=== PATIENT | male | born 1945 | race Caucasian/White ===

== ENCOUNTER 2019-08-18 08:27 | Day surgery (SDC) | payer MEDICARE, OTHER ==
[~2019-08-18 08:27] MED LIST: FLO0.4C PO; HYT1T PO; INHALER INH
[2019-08-18 08:40] VITALS: BP 145/76
[2019-08-18] MEDS ORDERED: AMIT50TA3 PO (09:11)
[2019-08-18] MEDS ORDERED: TRAM50TA2 PO (09:11)
[2019-08-18 10:20] VITALS: BP 150/72
[2019-08-18 10:35] VITALS: BP 149/74
[2019-08-18 10:50] VITALS: BP 146/74
[2019-08-18 11:05] VITALS: BP 141/74
[2019-08-18] MEDS ORDERED: normal saline 1000ml 1,000 ML IV SCH (12:05)
[2019-08-18] MEDS ORDERED: albumin (human) 25% 100ml IV 100 ML IV ONE (12:05)
== END 2019-08-18 13:35 | disposition home or self-care (01) ==
LOC: SSTAY O 08:27
PROVIDERS: ATTEND Radiology Vascular & Interventional Radiology
DX: R18.8 Other ascites (principal); C18.9 Malignant neoplasm of colon, unspecified; J44.9 Chronic obstructive pulmonary disease, unspecified; Z79.899 Other long term (current) drug therapy; Z98.890 Other specified postprocedural states
CPT/HCPCS: 49083; C1729; J7030; P9047

== ENCOUNTER 2019-08-30 06:16 | Day surgery (SDC) | payer MEDICARE, OTHER ==
[~2019-08-30] VITALS: Ht 177.8 cm; Wt 92.8 kg
[2019-08-30] VITALS (7 sets, daily range): BP systolic 128–152; BP diastolic 56–88
[~2019-08-30 06:16] MED LIST changes: +AMIT50TA3 PO; -FLO0.4C PO; -HYT1T PO; -INHALER INH; +TRAM50TA2 PO
[2019-08-30] MEDS ORDERED: LIDOcaine 1% (10mg/ml) 2ml vial ONE (06:36)
[2019-08-30] MEDS ORDERED: AMIT-189 PO (06:37)
[2019-08-30] MEDS ORDERED: albumin 25% 100mL bottle x 1 IV PRN (06:40)
[2019-08-30] MEDS ORDERED: normal saline 1000ml 1,000 ML IV PRN (06:40)
== END 2019-08-30 09:35 | disposition home or self-care (01) ==
LOC: SSTAY O 06:16
PROVIDERS: ATTEND Radiology Diagnostic Radiology
DX: R18.8 Other ascites (principal); J44.9 Chronic obstructive pulmonary disease, unspecified; C18.9 Malignant neoplasm of colon, unspecified; C78.5 Secondary malignant neoplasm of large intestine and rectum; Z98.890 Other specified postprocedural states; Z92.21 Personal history of antineoplastic chemotherapy; Z79.899 Other long term (current) drug therapy
CPT/HCPCS: 49083; C1729; J2001; P9047

== ENCOUNTER 2019-09-07 07:10 | Day surgery (SDC) | payer MEDICARE, OTHER ==
[~2019-09-07] VITALS: Ht 177.8 cm; Wt 95.5 kg
[~2019-09-07 07:10] MED LIST changes: +AMIT-189 PO; -AMIT50TA3 PO
[2019-09-07] MEDS ORDERED: normal saline 1000ml 1,000 ML IV SCH (07:30)
[2019-09-07] MEDS ORDERED: albumin 25% 100mL bottle x 1 IV PRN (07:50)
[2019-09-07] MEDS ORDERED: DIPH-522 PO (08:06)
[2019-09-07] MEDS ORDERED: FOLI0.4T14 CORPAK (08:06)
[2019-09-07] MEDS ORDERED: ONDA8TAB12 PO (08:06)
[2019-09-07] MEDS ORDERED: OMEP40CA13 PO (08:06)
[2019-09-07 08:12] VITALS: BP 148/77
[2019-09-07 08:25] VITALS: BP 158/90
[2019-09-07 08:40] VITALS: BP 152/90
[2019-09-07 08:55] VITALS: BP 164/92
[2019-09-07] MEDS ORDERED: LIDOcaine 1% (10mg/ml) 2ml vial ONE (09:01)
[2019-09-07 09:10] VITALS: BP 168/88
[2019-09-07 09:30] VITALS: BP 149/81
== END 2019-09-07 09:45 | disposition home or self-care (01) ==
LOC: SSTAY O 07:10
PROVIDERS: ATTEND Radiology Vascular & Interventional Radiology
DX: R18.8 Other ascites (principal)
CPT/HCPCS: 49083; C1729; J2001; J7030; P9047

== ENCOUNTER 2019-09-15 06:13 | Day surgery (SDC) | payer MEDICARE, OTHER ==
[2019-09-15] VITALS (7 sets, daily range): BP systolic 132–165; BP diastolic 81–96
[~2019-09-15] VITALS: Ht 180.3 cm; Wt 91.8 kg
[~2019-09-15 06:13] MED LIST changes: +DIPH-522 PO; +FOLI0.4T14 CORPAK; +OMEP40CA13 PO; +ONDA8TAB12 PO
[2019-09-15] MEDS ORDERED: normal saline 1000ml 1,000 ML IV PRN (06:30)
[2019-09-15] MEDS ORDERED: albumin 25% 100mL bottle x 1 IV PRN (06:30)
== END 2019-09-15 09:50 | disposition home or self-care (01) ==
LOC: SSTAY O 06:13
PROVIDERS: ATTEND Radiology Vascular & Interventional Radiology
DX: R18.0 Malignant ascites (principal); C18.9 Malignant neoplasm of colon, unspecified; Z98.890 Other specified postprocedural states; Z79.899 Other long term (current) drug therapy
CPT/HCPCS: 49083; C1729; J7030; P9047

== ENCOUNTER 2019-09-22 06:14 | Day surgery (SDC) | payer MEDICARE, OTHER ==
[~2019-09-22] VITALS: Ht 180.3 cm; Wt 89.5 kg
[2019-09-22] VITALS (7 sets, daily range): BP systolic 141–152; BP diastolic 77–85
[2019-09-22] MEDS ORDERED: albumin 25% 100mL bottle x 1 IV PRN (06:35)
[2019-09-22] MEDS ORDERED: normal saline 1000ml 1,000 ML IV PRN (06:35)
== END 2019-09-22 09:55 | disposition home or self-care (01) ==
LOC: SSTAY O 06:14
PROVIDERS: ATTEND Radiology Vascular & Interventional Radiology
DX: R18.8 Other ascites (principal); J44.9 Chronic obstructive pulmonary disease, unspecified; Z85.038 Personal history of other malignant neoplasm of large intestine; Z98.890 Other specified postprocedural states; Z79.899 Other long term (current) drug therapy
CPT/HCPCS: 49083; C1729; J7030; P9047

== ENCOUNTER 2019-09-29 08:04 | Day surgery (SDC) | payer MEDICARE, OTHER ==
[2019-09-29] VITALS (7 sets, daily range): BP systolic 130–147; BP diastolic 62–94
[~2019-09-29] VITALS: Ht 177.8 cm; Wt 87.7 kg
[2019-09-29] MEDS ORDERED: normal saline 1000ml 1,000 ML IV PRN (08:20)
[2019-09-29] MEDS ORDERED: albumin 25% 100mL bottle x 1 IV PRN (09:15)
== END 2019-09-29 10:16 | disposition home or self-care (01) ==
LOC: SSTAY O 08:04
PROVIDERS: ATTEND Radiology Diagnostic Radiology
DX: R18.8 Other ascites (principal); Z79.899 Other long term (current) drug therapy; Z85.038 Personal history of other malignant neoplasm of large intestine; Z80.0 Family history of malignant neoplasm of digestive organs
CPT/HCPCS: 49083; C1729; J7030; P9047

== ENCOUNTER 2019-10-13 06:58 | Day surgery (SDC) | payer MEDICARE, OTHER ==
[~2019-10-13] VITALS: Ht 177.8 cm; Wt 85.7 kg
[~2019-10-13 06:58] MED LIST changes: -ONDA8TAB12 PO; +ONDA8TAB65 PO
[2019-10-13 07:15] VITALS: BP 129/71
[2019-10-13] MEDS ORDERED: normal saline 1000ml 1,000 ML IV PRN (07:30)
[2019-10-13] MEDS ORDERED: albumin 25% 100mL bottle x 1 IV PRN (07:30)
[2019-10-13 09:38] VITALS: BP 127/65
[2019-10-13 09:45] VITALS: BP 127/69
[2019-10-13 10:00] VITALS: BP 126/68
[2019-10-13 10:13] VITALS: BP 130/65
== END 2019-10-13 10:16 | disposition home or self-care (01) ==
LOC: SSTAY O 06:58
PROVIDERS: ATTEND Radiology Diagnostic Radiology
DX: R18.8 Other ascites (principal); J44.9 Chronic obstructive pulmonary disease, unspecified; Z85.038 Personal history of other malignant neoplasm of large intestine; Z79.899 Other long term (current) drug therapy
CPT/HCPCS: 49083; C1729; J7030

== ENCOUNTER 2019-10-31 07:51 | Day surgery (SDC) | payer MEDICARE, OTHER ==
[2019-10-31] VITALS (8 sets, daily range): BP systolic 131–153; BP diastolic 68–84
[~2019-10-31] VITALS: Ht 180.3 cm; Wt 88.4 kg
[2019-10-31] MEDS ORDERED: albumin 25% 100mL bottle x 1 IV PRN (08:05)
[2019-10-31] MEDS ORDERED: [UNRECOGNIZED DRUG - CODE] IV (08:25)
[2019-10-31] MEDS ORDERED: FLUO1VIA8 IV (08:25)
[2019-10-31] MEDS ORDERED: LIDOcaine 1% (10mg/ml) 2ml vial SQ ONE (09:10)
== END 2019-10-31 10:30 | disposition home or self-care (01) ==
LOC: SSTAY O 07:51
PROVIDERS: ATTEND Radiology Vascular & Interventional Radiology
DX: R18.8 Other ascites (principal); J44.9 Chronic obstructive pulmonary disease, unspecified; G47.33 Obstructive sleep apnea (adult) (pediatric); F41.8 Other specified anxiety disorders; Z85.46 Personal history of malignant neoplasm of prostate; Z98.890 Other specified postprocedural states; Z79.899 Other long term (current) drug therapy
CPT/HCPCS: 49083; C1729; J2001; P9047

== ENCOUNTER 2019-11-13 06:46 | Day surgery (SDC) | payer MEDICARE, OTHER ==
[~2019-11-13] VITALS: Ht 180.3 cm; Wt 89.5 kg
[~2019-11-13 06:46] MED LIST changes: +FLUO1VIA8 IV; -ONDA8TAB65 PO; +[UNRECOGNIZED DRUG - CODE] IV
[2019-11-13 07:06] VITALS: BP 157/92
[2019-11-13] MEDS ORDERED: normal saline 1000ml 1,000 ML IV PRN (07:10)
[2019-11-13] MEDS ORDERED: albumin 25% 100mL bottle x 1 IV PRN (07:10)
[2019-11-13] MEDS ORDERED: [UNRECOGNIZED DRUG - OTHER] (07:11)
[2019-11-13 08:31] VITALS: BP 144/72
[2019-11-13 08:45] VITALS: BP 133/73
[2019-11-13 09:00] VITALS: BP 137/63
[2019-11-13] MEDS ORDERED: LIDOcaine 1% (10mg/ml) 2ml vial ONE (09:03)
[2019-11-13 09:15] VITALS: BP 140/72
[2019-11-13 10:01] VITALS: BP 141/71
== END 2019-11-13 10:10 | disposition home or self-care (01) ==
LOC: SSTAY O 06:46
PROVIDERS: ATTEND Radiology Vascular & Interventional Radiology
DX: R18.8 Other ascites (principal); J44.9 Chronic obstructive pulmonary disease, unspecified; G47.30 Sleep apnea, unspecified; E80.4 Gilbert syndrome; F32.9 Major depressive disorder, single episode, unspecified; F41.9 Anxiety disorder, unspecified; Z85.46 Personal history of malignant neoplasm of prostate; Z85.038 Personal history of other malignant neoplasm of large intestine; Z98.890 Other specified postprocedural states; Z79.899 Other long term (current) drug therapy
CPT/HCPCS: 49083; C1729; J2001; P9047

== ENCOUNTER 2019-11-27 07:02 | Day surgery (SDC) | payer MEDICARE, OTHER ==
[~2019-11-27] VITALS: Ht 185.4 cm; Wt 89.8 kg
[~2019-11-27 07:02] MED LIST changes: -FLUO1VIA8 IV; -FOLI0.4T14 CORPAK; +FOLI0.4T14 PO; -[UNRECOGNIZED DRUG - CODE] IV; +[UNRECOGNIZED DRUG - OTHER]
[2019-11-27 07:15] VITALS: BP 149/89
[2019-11-27] MEDS ORDERED: normal saline 1000ml 1,000 ML IV PRN (07:20)
[2019-11-27] MEDS ORDERED: albumin 25% 100mL bottle x 1 IV PRN (07:20)
[2019-11-27] MEDS ORDERED: ESCI10TA PO (07:23)
[2019-11-27 09:25] VITALS: BP 141/86
[2019-11-27 09:30] VITALS: BP 143/76
[2019-11-27 09:45] VITALS: BP 144/79
[2019-11-27 10:15] VITALS: BP 144/81
[2019-11-27 10:30] VITALS: BP 141/75
== END 2019-11-27 10:50 | disposition home or self-care (01) ==
LOC: SSTAY O 07:02
PROVIDERS: ATTEND Radiology Vascular & Interventional Radiology
DX: R18.8 Other ascites (principal); J44.9 Chronic obstructive pulmonary disease, unspecified; G47.30 Sleep apnea, unspecified; F32.9 Major depressive disorder, single episode, unspecified; F41.9 Anxiety disorder, unspecified; D56.3 Thalassemia minor; E80.4 Gilbert syndrome; Z85.46 Personal history of malignant neoplasm of prostate; Z85.038 Personal history of other malignant neoplasm of large intestine; Z79.899 Other long term (current) drug therapy; Z98.890 Other specified postprocedural states
CPT/HCPCS: 49083; C1729; J2001; P9047

== ENCOUNTER 2019-12-11 07:20 | Day surgery (SDC) | payer MEDICARE, OTHER ==
[2019-12-11] VITALS (8 sets, daily range): BP systolic 108–145; BP diastolic 57–92
[~2019-12-11] VITALS: Ht 180.3 cm; Wt 73.9 kg
[~2019-12-11 07:20] MED LIST changes: +ESCI10TA PO; -[UNRECOGNIZED DRUG - OTHER]
[2019-12-11] MEDS ORDERED: FLUO1VIA8 (07:53)
[2019-12-11] MEDS ORDERED: albumin 25% 100mL bottle x 1 IV PRN (07:55)
== END 2019-12-11 11:15 | disposition home or self-care (01) ==
LOC: SSTAY O 07:20
PROVIDERS: ATTEND Radiology Diagnostic Radiology
DX: R18.8 Other ascites (principal); J44.9 Chronic obstructive pulmonary disease, unspecified; G47.30 Sleep apnea, unspecified; F32.9 Major depressive disorder, single episode, unspecified; F41.9 Anxiety disorder, unspecified; C18.9 Malignant neoplasm of colon, unspecified; Z98.890 Other specified postprocedural states; Z85.46 Personal history of malignant neoplasm of prostate; Z79.899 Other long term (current) drug therapy
CPT/HCPCS: 49083; C1729; P9047

== ENCOUNTER 2019-12-29 08:25 | Day surgery (SDC) | payer MEDICARE, OTHER ==
[~2019-12-29] VITALS: Ht 180.3 cm; Wt 89.1 kg
[~2019-12-29 08:25] MED LIST changes: -DIPH-522 PO; -ESCI10TA PO; +FLUO1VIA8; -TRAM50TA2 PO
[2019-12-29] MEDS ORDERED: albumin 25% 100mL bottle x 1 IV PRN (08:50)
[2019-12-29] MEDS ORDERED: normal saline 1000ml 1,000 ML IV PRN (08:50)
[2019-12-29 08:54] VITALS: BP 144/61
--- NOTE | 2019-12-29 16:13 | NUR ---
scheduled vitals on monitor accidentally erased-staff transitioning to new unit and getting familiarized with new equipment and processes-VS remained stable throughout procedure and recovery
== END 2019-12-29 11:00 | disposition home or self-care (01) ==
LOC: MED 3N 08:25 → SSTAY O 08:25
PROVIDERS: ATTEND Radiology Vascular & Interventional Radiology
DX: R18.8 Other ascites (principal); C18.9 Malignant neoplasm of colon, unspecified; J44.9 Chronic obstructive pulmonary disease, unspecified; G47.30 Sleep apnea, unspecified; E80.4 Gilbert syndrome; D56.3 Thalassemia minor; F32.9 Major depressive disorder, single episode, unspecified; F41.9 Anxiety disorder, unspecified; Z85.46 Personal history of malignant neoplasm of prostate; Z98.890 Other specified postprocedural states; Z79.899 Other long term (current) drug therapy
CPT/HCPCS: 49083; C1729; P9047; GO378

== ENCOUNTER 2020-01-12 07:47 | Day surgery (SDC) | payer MEDICARE, OTHER ==
[~2020-01-12] VITALS: Ht 180.3 cm; Wt 88.4 kg
[2020-01-12] MEDS ORDERED: albumin 25% 100mL bottle x 1 IV PRN (08:10)
[2020-01-12 08:15] VITALS: BP 138/64
[2020-01-12] MEDS ORDERED: TRAM50TA2 PO (08:23)
[2020-01-12] MEDS ORDERED: DIPH-186 PO (08:23)
[2020-01-12 09:15] VITALS: BP 145/72
[2020-01-12] MEDS ORDERED: LIDOcaine 1% (10mg/ml) 2ml vial ONE (09:55)
== END 2020-01-12 11:10 | disposition home or self-care (01) ==
LOC: SSTAY O 07:47 → MED 3N 07:49 → SSTAY O 11:10
PROVIDERS: ATTEND Radiology Diagnostic Radiology
DX: R18.8 Other ascites (principal); C18.9 Malignant neoplasm of colon, unspecified; J44.9 Chronic obstructive pulmonary disease, unspecified; G47.33 Obstructive sleep apnea (adult) (pediatric); D56.3 Thalassemia minor; F32.9 Major depressive disorder, single episode, unspecified; F41.9 Anxiety disorder, unspecified; E80.4 Gilbert syndrome; Z85.46 Personal history of malignant neoplasm of prostate; Z85.828 Personal history of other malignant neoplasm of skin; Z98.890 Other specified postprocedural states; Z79.899 Other long term (current) drug therapy
CPT/HCPCS: 49083; C1729; J2001; P9047

== ENCOUNTER 2020-01-26 07:02 | Day surgery (SDC) | payer MEDICARE, OTHER ==
[2020-01-26] VITALS (9 sets, daily range): BP systolic 121–144; BP diastolic 62–95
[~2020-01-26] VITALS: Ht 180.3 cm; Wt 86.2 kg
[~2020-01-26 07:02] MED LIST changes: +DIPH-186 PO; +TRAM50TA2 PO
[2020-01-26] MEDS ORDERED: normal saline 1000ml 1,000 ML IV PRN (07:25)
[2020-01-26] MEDS ORDERED: albumin 25% 100mL bottle x 1 IV PRN (07:25)
[2020-01-26] MEDS ORDERED: BENZ-38 PO (08:22)
[2020-01-26] MEDS ORDERED: ESCI-10 PO (08:22)
[2020-01-26] MEDS ORDERED: [UNRECOGNIZED DRUG - CODE] IV (08:24)
[2020-01-26] MEDS ORDERED: FOLI0.4T14 PO (08:25)
[2020-01-26] MEDS ORDERED: ONDA8TAB65 PO (08:26)
[2020-01-26] MEDS ORDERED: LIDOcaine 1% (10mg/ml) 2ml vial ONE (08:57)
== END 2020-01-26 10:00 | disposition home or self-care (01) ==
LOC: U 07:02 → MED 3N 07:02 → U 10:00
PROVIDERS: ATTEND Radiology Vascular & Interventional Radiology
DX: R18.8 Other ascites (principal); G47.30 Sleep apnea, unspecified; F32.9 Major depressive disorder, single episode, unspecified; C18.9 Malignant neoplasm of colon, unspecified; F41.9 Anxiety disorder, unspecified; Z98.890 Other specified postprocedural states; Z79.899 Other long term (current) drug therapy; Z85.46 Personal history of malignant neoplasm of prostate
CPT/HCPCS: 49083; C1729; J2001; P9047

== ENCOUNTER 2020-02-09 07:17 | Day surgery (SDC) | payer MEDICARE, OTHER ==
[~2020-02-09] VITALS: Ht 180.3 cm; Wt 85.5 kg
[~2020-02-09 07:17] MED LIST changes: +BENZ-38 PO; +ESCI-10 PO; -FLUO1VIA8; +ONDA8TAB65 PO; +[UNRECOGNIZED DRUG - CODE] IV
[2020-02-09 07:30] VITALS: BP 131/78
[2020-02-09] MEDS ORDERED: albumin 25% 100mL bottle x 1 IV PRN (07:35)
[2020-02-09] MEDS ORDERED: normal saline 1000ml 1,000 ML IV PRN (07:35)
[2020-02-09 08:20] VITALS: BP 122/68
[2020-02-09 08:35] VITALS: BP 134/66
[2020-02-09] MEDS ORDERED: LIDOcaine 1% (10mg/ml) 2ml vial SQ ONE (08:40)
[2020-02-09 08:50] VITALS: BP 122/76
[2020-02-09 09:05] VITALS: BP 122/65
[2020-02-09 09:20] VITALS: BP 123/72
== END 2020-02-09 09:30 | disposition home or self-care (01) ==
LOC: SSTAY O 07:17
PROVIDERS: ATTEND Radiology Diagnostic Radiology
DX: R18.8 Other ascites (principal); C18.9 Malignant neoplasm of colon, unspecified; J44.9 Chronic obstructive pulmonary disease, unspecified; G47.30 Sleep apnea, unspecified; E80.4 Gilbert syndrome; D56.3 Thalassemia minor; F41.9 Anxiety disorder, unspecified; F32.9 Major depressive disorder, single episode, unspecified; Z85.46 Personal history of malignant neoplasm of prostate; Z98.890 Other specified postprocedural states; Z79.899 Other long term (current) drug therapy
CPT/HCPCS: 49083; C1729; J2001; P9047

== ENCOUNTER 2020-02-23 07:01 | Day surgery (SDC) | payer MEDICARE, OTHER ==
[~2020-02-23] VITALS: Ht 180.3 cm; Wt 89.2 kg
[~2020-02-23 07:01] MED LIST changes: -BENZ-38 PO; -ESCI-10 PO; -FOLI0.4T14 PO; -ONDA8TAB65 PO
[2020-02-23] MEDS ORDERED: albumin 25% 100mL bottle x 1 IV PRN (07:30)
[2020-02-23 07:31] VITALS: BP 152/74
[2020-02-23 08:27] VITALS: BP 132/66
[2020-02-23 08:30] VITALS: BP 132/66
[2020-02-23] MEDS ORDERED: LIDOcaine 1% (10mg/ml) 2ml vial ONE (08:42)
[2020-02-23 08:45] VITALS: BP 131/66
[2020-02-23] MEDS ORDERED: ondansetron/PF 4mg/2ml inj IV ONE (09:15)
[2020-02-23] MEDS ORDERED: ondansetron/PF 4mg/2ml inj IM ONE (09:15)
[2020-02-23 09:30] VITALS: BP 136/68
== END 2020-02-23 09:45 | disposition home or self-care (01) ==
LOC: SSTAY O 07:01
PROVIDERS: ATTEND Radiology Diagnostic Radiology
DX: R18.8 Other ascites (principal); J44.9 Chronic obstructive pulmonary disease, unspecified; G47.30 Sleep apnea, unspecified; E80.4 Gilbert syndrome; D56.3 Thalassemia minor; F32.9 Major depressive disorder, single episode, unspecified; F41.9 Anxiety disorder, unspecified; Z85.46 Personal history of malignant neoplasm of prostate; Z85.038 Personal history of other malignant neoplasm of large intestine; K58.9 Irritable bowel syndrome, unspecified; Z98.890 Other specified postprocedural states; Z79.899 Other long term (current) drug therapy
CPT/HCPCS: 49083; J2001; J2405; P9047

== ENCOUNTER 2020-03-08 07:56 | Day surgery (SDC) | payer MEDICARE, OTHER ==
[2020-03-08] VITALS (7 sets, daily range): BP systolic 115–125; BP diastolic 51–74
[~2020-03-08] VITALS: Ht 180.3 cm; Wt 86.9 kg
[2020-03-08] MEDS ORDERED: normal saline 1000ml 1,000 ML IV PRN (08:15)
[2020-03-08] MEDS ORDERED: albumin 25% 100mL bottle x 1 IV PRN (08:15)
[2020-03-08] MEDS ORDERED: LIDOcaine 1% (10mg/ml) 2ml vial ONE (08:16)
[2020-03-08] MEDS ORDERED: ondansetron/PF 4mg/2ml inj IV ONE (09:50)
== END 2020-03-08 11:08 | disposition home or self-care (01) ==
LOC: SSTAY O 07:56
PROVIDERS: ATTEND Radiology Diagnostic Radiology
DX: R18.8 Other ascites (principal); J44.9 Chronic obstructive pulmonary disease, unspecified; G47.30 Sleep apnea, unspecified; F32.9 Major depressive disorder, single episode, unspecified; F41.9 Anxiety disorder, unspecified; Z98.890 Other specified postprocedural states; Z79.899 Other long term (current) drug therapy
CPT/HCPCS: 49083; C1729; J2001; J2405; P9047

== ENCOUNTER 2020-03-22 06:58 | Day surgery (SDC) | payer MEDICARE, OTHER ==
[2020-03-22] VITALS (8 sets, daily range): BP systolic 125–145; BP diastolic 64–80
[~2020-03-22] VITALS: Ht 180.3 cm; Wt 88.1 kg
[2020-03-22] MEDS ORDERED: albumin 25% 100mL bottle x 1 IV PRN (07:20)
[2020-03-22] MEDS ORDERED: normal saline 1000ml 1,000 ML IV PRN (07:20)
[2020-03-22] MEDS ORDERED: LIDOcaine 1% (10mg/ml) 2ml vial ONE (07:25)
--- NOTE | 2020-03-22 10:05 | NUR ---
Called EDUARD Salazar for Zofran order, pt complaining of nausea. Order received.
[2020-03-22] MEDS ORDERED: ondansetron/PF 4mg/2ml inj IV ONE (10:10)
== END 2020-03-22 10:30 | disposition home or self-care (01) ==
LOC: SSTAY O 06:58
PROVIDERS: ATTEND Radiology Vascular & Interventional Radiology
DX: R18.8 Other ascites (principal); C18.9 Malignant neoplasm of colon, unspecified; J44.9 Chronic obstructive pulmonary disease, unspecified; K58.9 Irritable bowel syndrome, unspecified; G47.30 Sleep apnea, unspecified; E80.4 Gilbert syndrome; D56.3 Thalassemia minor; F32.9 Major depressive disorder, single episode, unspecified; F41.9 Anxiety disorder, unspecified; Z85.46 Personal history of malignant neoplasm of prostate; Z98.890 Other specified postprocedural states; Z79.899 Other long term (current) drug therapy
CPT/HCPCS: 49083; J2001; J2405; P9047

== ENCOUNTER 2020-03-29 07:21 | Day surgery (SDC) | payer MEDICARE, OTHER ==
[2020-03-29] VITALS (10 sets, daily range): BP systolic 105–127; BP diastolic 57–80
[~2020-03-29] VITALS: Ht 177.8 cm; Wt 84.8 kg
[~2020-03-29 07:21] MED LIST changes: -OMEP40CA13 PO
[2020-03-29] MEDS ORDERED: albumin 25% 100mL bottle x 1 IV PRN (07:50)
[2020-03-29] MEDS ORDERED: normal saline 1000ml 1,000 ML IV PRN (07:50)
[2020-03-29] MEDS ORDERED: THC GUMMIES PO (08:18)
[2020-03-29] MEDS ORDERED: ondansetron/PF 4mg/2ml inj IV ONE (10:05)
[2020-03-29] MEDS ORDERED: ondansetron/PF 4mg/2ml inj ONE (10:06)
== END 2020-03-29 10:52 | disposition home or self-care (01) ==
LOC: SSTAY O 07:21
PROVIDERS: ATTEND Radiology Diagnostic Radiology
DX: R18.8 Other ascites (principal); K58.9 Irritable bowel syndrome, unspecified; G47.30 Sleep apnea, unspecified; E80.4 Gilbert syndrome; F32.9 Major depressive disorder, single episode, unspecified; F41.9 Anxiety disorder, unspecified; D56.3 Thalassemia minor; Z85.46 Personal history of malignant neoplasm of prostate; Z98.890 Other specified postprocedural states; Z79.899 Other long term (current) drug therapy
CPT/HCPCS: 49083; J2405; P9047

== ENCOUNTER 2020-04-12 07:11 | Day surgery (SDC) | payer MEDICARE, OTHER ==
[~2020-04-12] VITALS: Ht 177.8 cm; Wt 85.8 kg
[~2020-04-12 07:11] MED LIST changes: +THC GUMMIES PO
[2020-04-12] MEDS ORDERED: normal saline 1000ml 1,000 ML IV PRN (07:25)
[2020-04-12] MEDS ORDERED: albumin 25% 100mL bottle x 1 IV PRN (07:25)
[2020-04-12 07:30] VITALS: BP 131/76
[2020-04-12 08:45] VITALS: BP 115/60
[2020-04-12] MEDS ORDERED: ondansetron/PF 4mg/2ml inj IV ONE (08:55)
[2020-04-12] MEDS ORDERED: ondansetron/PF 4mg/2ml inj IV PRN (08:55)
[2020-04-12 09:00] VITALS: BP 117/61
[2020-04-12 09:15] VITALS: BP 109/58
[2020-04-12 09:30] VITALS: BP 106/62
[2020-04-12 09:45] VITALS: BP 123/61
== END 2020-04-12 09:52 | disposition home or self-care (01) ==
LOC: SSTAY O 07:11
PROVIDERS: ATTEND Radiology Diagnostic Radiology
DX: R18.8 Other ascites (principal); F41.9 Anxiety disorder, unspecified; F32.9 Major depressive disorder, single episode, unspecified; G47.30 Sleep apnea, unspecified; D56.3 Thalassemia minor; Z85.46 Personal history of malignant neoplasm of prostate; J44.9 Chronic obstructive pulmonary disease, unspecified; Z85.038 Personal history of other malignant neoplasm of large intestine; E80.4 Gilbert syndrome; Z79.899 Other long term (current) drug therapy
CPT/HCPCS: 49083; 76937; J2405; P9047

== ENCOUNTER 2020-04-26 07:31 | Day surgery (SDC) | payer MEDICARE, OTHER ==
[~2020-04-26] VITALS: Ht 177.8 cm; Wt 87.6 kg
[2020-04-26] VITALS (9 sets, daily range): BP systolic 106–134; BP diastolic 53–78
[2020-04-26] MEDS ORDERED: normal saline 1000ml 1,000 ML IV PRN (07:50)
[2020-04-26] MEDS ORDERED: ondansetron/PF 4mg/2ml inj IV ONE (09:00)
[2020-04-26] MEDS: albumin 25% 100mL bottle x 1 IV PRN ×2 (09:11→09:52)
== END 2020-04-26 10:30 | disposition home or self-care (01) ==
LOC: SSTAY O 07:31
PROVIDERS: ATTEND Radiology Vascular & Interventional Radiology
DX: R18.8 Other ascites (principal); J44.9 Chronic obstructive pulmonary disease, unspecified; K58.9 Irritable bowel syndrome, unspecified; G47.30 Sleep apnea, unspecified; E80.4 Gilbert syndrome; F32.9 Major depressive disorder, single episode, unspecified; F41.9 Anxiety disorder, unspecified; D56.3 Thalassemia minor; Z85.46 Personal history of malignant neoplasm of prostate; Z85.038 Personal history of other malignant neoplasm of large intestine; Z98.890 Other specified postprocedural states
CPT/HCPCS: 49083; J2405; P9047

== ENCOUNTER 2020-05-24 07:02 | Day surgery (SDC) | payer MEDICARE, OTHER ==
[~2020-05-24] VITALS: Ht 177.8 cm; Wt 82.8 kg
[2020-05-24] MEDS ORDERED: albumin 25% 100mL bottle x 1 IV PRN (07:25)
[2020-05-24] MEDS ORDERED: normal saline 1000ml 1,000 ML IV PRN (07:25)
[2020-05-24 07:35] VITALS: BP 100/68
[2020-05-24 08:30] VITALS: BP 121/67
[2020-05-24 08:50] VITALS: BP 121/65
[2020-05-24 09:05] VITALS: BP 119/67
[2020-05-24 09:20] VITALS: BP 118/63
[2020-05-24] MEDS ORDERED: ondansetron/PF 4mg/2ml inj IM ONE (09:20)
[2020-05-24] MEDS ORDERED: ondansetron/PF 4mg/2ml inj IV ONE (09:30)
[2020-05-24 09:35] VITALS: BP 128/76
== END 2020-05-24 09:50 | disposition home or self-care (01) ==
LOC: SSTAY O 07:02
PROVIDERS: ATTEND Radiology Diagnostic Radiology
DX: R18.8 Other ascites (principal); J44.9 Chronic obstructive pulmonary disease, unspecified; C18.9 Malignant neoplasm of colon, unspecified; K58.9 Irritable bowel syndrome, unspecified; G47.30 Sleep apnea, unspecified; E80.4 Gilbert syndrome; F41.9 Anxiety disorder, unspecified; D56.3 Thalassemia minor; F32.9 Major depressive disorder, single episode, unspecified; Z85.46 Personal history of malignant neoplasm of prostate; Z98.890 Other specified postprocedural states; Z79.899 Other long term (current) drug therapy
CPT/HCPCS: 49083; 76937; P9047

== ENCOUNTER 2020-06-07 07:23 | Day surgery (SDC) | payer MEDICARE, OTHER ==
[~2020-06-07] VITALS: Ht 177.8 cm; Wt 85.5 kg
[2020-06-07] VITALS (9 sets, daily range): BP systolic 117–140; BP diastolic 67–93
[2020-06-07] MEDS ORDERED: normal saline 1000ml 1,000 ML IV PRN (07:45)
[2020-06-07] MEDS ORDERED: ondansetron/PF 4mg/2ml inj IV ONE (08:35)
[2020-06-07] MEDS: albumin 25% 100mL bottle x 1 IV PRN ×2 (08:54→09:28)
== END 2020-06-07 10:16 | disposition home or self-care (01) ==
LOC: SSTAY O 07:23
PROVIDERS: ATTEND Radiology Vascular & Interventional Radiology
DX: R18.8 Other ascites (principal); J44.9 Chronic obstructive pulmonary disease, unspecified; G47.30 Sleep apnea, unspecified; F32.9 Major depressive disorder, single episode, unspecified; F41.9 Anxiety disorder, unspecified; Z85.46 Personal history of malignant neoplasm of prostate; Z98.890 Other specified postprocedural states; Z79.899 Other long term (current) drug therapy
CPT/HCPCS: 49083; P9047

== ENCOUNTER 2020-06-20 07:52 | Day surgery (SDC) | payer MEDICARE, OTHER ==
[~2020-06-20] VITALS: Ht 177.8 cm; Wt 82.1 kg
[2020-06-20] MEDS ORDERED: LIDOcaine 1% (10mg/ml) 2ml vial SQ ONE (08:05)
[2020-06-20 08:06] VITALS: BP 126/75
[2020-06-20] MEDS ORDERED: albumin 25% 100mL bottle x 1 IV PRN (08:10)
[2020-06-20] MEDS ORDERED: ondansetron/PF 4mg/2ml inj IV ONE (08:20)
[2020-06-20] MEDS ORDERED: CLOP75TA15 PO (08:57)
[2020-06-20 09:21] VITALS: BP 124/73
[2020-06-20 09:36] VITALS: BP 110/61
[2020-06-20 09:51] VITALS: BP 106/58
[2020-06-20 10:10] VITALS: BP 104/59
== END 2020-06-20 10:15 | disposition home or self-care (01) ==
LOC: SSTAY O 07:52
PROVIDERS: ATTEND Radiology Vascular & Interventional Radiology
DX: R18.8 Other ascites (principal); G47.30 Sleep apnea, unspecified; E80.4 Gilbert syndrome; D56.3 Thalassemia minor; F41.9 Anxiety disorder, unspecified; F32.9 Major depressive disorder, single episode, unspecified; C18.9 Malignant neoplasm of colon, unspecified; Z85.46 Personal history of malignant neoplasm of prostate; Z98.890 Other specified postprocedural states; Z79.899 Other long term (current) drug therapy
CPT/HCPCS: 49083; J2001; J2405; P9047

== ENCOUNTER 2020-07-11 07:05 | Day surgery (SDC) | payer MEDICARE, OTHER ==
[~2020-07-11] VITALS: Ht 177.8 cm; Wt 86.3 kg
[2020-07-11] VITALS (11 sets, daily range): BP systolic 108–130; BP diastolic 54–84
[~2020-07-11 07:05] MED LIST changes: +CLOP75TA15 PO; -[UNRECOGNIZED DRUG - CODE] IV
[2020-07-11] MEDS ORDERED: LIDOcaine 1% (10mg/ml) 2ml vial SQ ONE (08:00)
[2020-07-11] MEDS ORDERED: HYDR-4353 PO (08:05)
[2020-07-11] MEDS: albumin 25% 100mL bottle x 1 IV PRN ×2 (08:46→09:50)
[2020-07-11] MEDS ORDERED: ondansetron/PF 4mg/2ml inj IV ONE (08:55)
== END 2020-07-11 10:55 | disposition home or self-care (01) ==
LOC: SSTAY O 07:05
PROVIDERS: ATTEND Radiology Diagnostic Radiology
DX: R18.8 Other ascites (principal); C18.9 Malignant neoplasm of colon, unspecified; J44.9 Chronic obstructive pulmonary disease, unspecified; E80.4 Gilbert syndrome; D56.3 Thalassemia minor; F32.9 Major depressive disorder, single episode, unspecified; F41.9 Anxiety disorder, unspecified; Z85.46 Personal history of malignant neoplasm of prostate; Z98.890 Other specified postprocedural states; Z79.899 Other long term (current) drug therapy
CPT/HCPCS: 49083; J2001; J2405; P9047

== ENCOUNTER 2020-07-25 07:03 | Day surgery (SDC) | payer MEDICARE, OTHER ==
[2020-07-25] VITALS (9 sets, daily range): BP systolic 103–119; BP diastolic 58–70
[~2020-07-25] VITALS: Ht 180.3 cm; Wt 85.1 kg
[~2020-07-25 07:03] MED LIST changes: +HYDR-4353 PO; -TRAM50TA2 PO
[2020-07-25] MEDS ORDERED: albumin 25% 100mL bottle x 1 IV PRN (07:20)
[2020-07-25] MEDS ORDERED: ondansetron/PF 4mg/2ml inj IV ONE (09:30)
== END 2020-07-25 10:30 | disposition home or self-care (01) ==
LOC: SSTAY O 07:03
PROVIDERS: ATTEND Radiology Diagnostic Radiology
DX: R18.8 Other ascites (principal); J44.9 Chronic obstructive pulmonary disease, unspecified; K58.9 Irritable bowel syndrome, unspecified; G47.30 Sleep apnea, unspecified; E80.4 Gilbert syndrome; D56.3 Thalassemia minor; F41.9 Anxiety disorder, unspecified; F32.9 Major depressive disorder, single episode, unspecified; C18.9 Malignant neoplasm of colon, unspecified; Z85.46 Personal history of malignant neoplasm of prostate; Z98.890 Other specified postprocedural states; Z79.899 Other long term (current) drug therapy; Z79.01 Long term (current) use of anticoagulants
CPT/HCPCS: 49083; P9047

== ENCOUNTER 2020-08-15 06:59 | Day surgery (SDC) | payer MEDICARE, OTHER ==
[~2020-08-15] VITALS: Ht 180.3 cm; Wt 84.0 kg
[2020-08-15] VITALS (8 sets, daily range): BP systolic 124–140; BP diastolic 64–85
[2020-08-15] MEDS ORDERED: albumin 25% 100mL bottle x 1 IV PRN (07:30)
[2020-08-15] MEDS ORDERED: CHOL500049 PO (08:24)
[2020-08-15] MEDS ORDERED: PANT40TA54 PO (08:24)
[2020-08-15] MEDS ORDERED: KAY15L PO (08:24)
[2020-08-15] MEDS ORDERED: ondansetron/PF 4mg/2ml inj IV ONE (09:05)
== END 2020-08-15 10:09 | disposition home or self-care (01) ==
LOC: SSTAY O 06:59
PROVIDERS: ATTEND Radiology Diagnostic Radiology
DX: R18.8 Other ascites (principal); J44.9 Chronic obstructive pulmonary disease, unspecified; G47.30 Sleep apnea, unspecified; E80.4 Gilbert syndrome; D56.3 Thalassemia minor; F32.9 Major depressive disorder, single episode, unspecified; F41.9 Anxiety disorder, unspecified; Z86.718 Personal history of other venous thrombosis and embolism; Z85.038 Personal history of other malignant neoplasm of large intestine; Z85.46 Personal history of malignant neoplasm of prostate; Z79.01 Long term (current) use of anticoagulants; Z79.899 Other long term (current) drug therapy; Z98.890 Other specified postprocedural states
CPT/HCPCS: 49083; P9047

== ENCOUNTER 2020-08-27 05:55 | Day surgery (SDC) | payer MEDICARE, OTHER ==
[2020-08-27] VITALS (9 sets, daily range): BP systolic 125–136; BP diastolic 60–86
[~2020-08-27] VITALS: Ht 180.3 cm; Wt 80.7 kg
[~2020-08-27 05:55] MED LIST changes: +CHOL500049 PO; -CLOP75TA15 PO; +KAY15L PO; +PANT40TA54 PO
[2020-08-27] MEDS ORDERED: normal saline 1000ml 1,000 ML IV PRN (06:30)
[2020-08-27] MEDS ORDERED: CELE-193 PO (07:24)
[2020-08-27] MEDS ORDERED: ondansetron/PF 4mg/2ml inj IV ONE (08:35)
[2020-08-27] MEDS: albumin 25% 100mL bottle x 1 IV PRN ×2 (08:50→09:40)
== END 2020-08-27 11:00 | disposition home or self-care (01) ==
LOC: SSTAY O 05:55
PROVIDERS: ATTEND Radiology Vascular & Interventional Radiology
DX: R18.8 Other ascites (principal); C18.9 Malignant neoplasm of colon, unspecified; J44.9 Chronic obstructive pulmonary disease, unspecified; K58.9 Irritable bowel syndrome, unspecified; E80.4 Gilbert syndrome; D56.3 Thalassemia minor; F41.9 Anxiety disorder, unspecified; F32.9 Major depressive disorder, single episode, unspecified; Z85.46 Personal history of malignant neoplasm of prostate; Z98.890 Other specified postprocedural states; Z79.899 Other long term (current) drug therapy; Z86.718 Personal history of other venous thrombosis and embolism; Z79.01 Long term (current) use of anticoagulants
CPT/HCPCS: 49083; J2405; P9047

== ENCOUNTER 2020-09-13 07:00 | Day surgery (SDC) | payer MEDICARE, OTHER ==
[~2020-09-13] VITALS: Ht 185.4 cm; Wt 86.4 kg
[~2020-09-13 07:00] MED LIST changes: +CELE-193 PO; -KAY15L PO
[2020-09-13 07:12] VITALS: BP 125/51
[2020-09-13] MEDS ORDERED: Cipro (07:30)
[2020-09-13] MEDS ORDERED: albumin 25% 100mL bottle x 1 IV PRN (07:30)
[2020-09-13] MEDS ORDERED: ondansetron/PF 4mg/2ml inj IV ONE (08:50)
[2020-09-13 08:59] VITALS: BP 122/60
[2020-09-13 09:14] VITALS: BP 122/60
[2020-09-13 09:30] VITALS: BP 118/64
[2020-09-13 09:44] VITALS: BP 131/70
[2020-09-13 10:00] VITALS: BP 117/64
== END 2020-09-13 10:15 | disposition home or self-care (01) ==
LOC: SSTAY O 07:00
PROVIDERS: ATTEND Radiology Vascular & Interventional Radiology
DX: R18.8 Other ascites (principal); C18.9 Malignant neoplasm of colon, unspecified; J44.9 Chronic obstructive pulmonary disease, unspecified; G47.30 Sleep apnea, unspecified; E80.4 Gilbert syndrome; D56.3 Thalassemia minor; F32.9 Major depressive disorder, single episode, unspecified; F41.9 Anxiety disorder, unspecified; Z85.46 Personal history of malignant neoplasm of prostate; Z86.718 Personal history of other venous thrombosis and embolism; Z79.899 Other long term (current) drug therapy; Z79.01 Long term (current) use of anticoagulants
CPT/HCPCS: 49083; P9047

== ENCOUNTER 2020-10-03 07:38 | Day surgery (SDC) | payer MEDICARE, OTHER ==
[~2020-10-03] VITALS: Ht 180.3 cm; Wt 90.7 kg
[2020-10-03] VITALS (12 sets, daily range): BP systolic 133–157; BP diastolic 64–103
[~2020-10-03 07:38] MED LIST changes: +Cipro
[2020-10-03] MEDS ORDERED: LIDOcaine 1% (10mg/ml) 2ml vial ONE (07:57)
[2020-10-03] MEDS ORDERED: ondansetron/PF 4mg/2ml inj IV ONE (09:15)
[2020-10-03] MEDS ORDERED: ondansetron/PF 4mg/2ml inj ONE (09:20)
[2020-10-03] MEDS: albumin 25% 100mL bottle x 1 IV PRN ×2 (09:41→10:34)
== END 2020-10-03 11:40 | disposition home or self-care (01) ==
LOC: SSTAY O 07:38
PROVIDERS: ATTEND Radiology Diagnostic Radiology
DX: R18.8 Other ascites (principal); C18.9 Malignant neoplasm of colon, unspecified; J44.9 Chronic obstructive pulmonary disease, unspecified; K58.9 Irritable bowel syndrome, unspecified; G47.30 Sleep apnea, unspecified; E80.4 Gilbert syndrome; D56.3 Thalassemia minor; F32.9 Major depressive disorder, single episode, unspecified; F41.9 Anxiety disorder, unspecified; Z85.46 Personal history of malignant neoplasm of prostate; Z86.718 Personal history of other venous thrombosis and embolism; Z79.01 Long term (current) use of anticoagulants; Z98.890 Other specified postprocedural states; Z79.899 Other long term (current) drug therapy
CPT/HCPCS: 49083; J2001; J2405; P9047

== ENCOUNTER 2020-10-15 07:02 | Day surgery (SDC) | payer MEDICARE, OTHER ==
[~2020-10-15] VITALS: Ht 180.3 cm; Wt 88.2 kg
[2020-10-15] VITALS (8 sets, daily range): BP systolic 120–146; BP diastolic 54–94
[2020-10-15] MEDS ORDERED: albumin 25% 100mL bottle x 1 IV PRN (07:25)
[2020-10-15] MEDS ORDERED: ondansetron/PF 4mg/2ml inj IV ONE (08:40)
[2020-10-15] MEDS ORDERED: LIDOcaine 1% (10mg/ml) 2ml vial ONE (09:03)
== END 2020-10-15 10:35 | disposition home or self-care (01) ==
LOC: SSTAY O 07:02
PROVIDERS: ATTEND Radiology Vascular & Interventional Radiology
DX: R18.8 Other ascites (principal); Z85.038 Personal history of other malignant neoplasm of large intestine; J44.9 Chronic obstructive pulmonary disease, unspecified; G47.30 Sleep apnea, unspecified; E80.4 Gilbert syndrome; D56.3 Thalassemia minor; F41.9 Anxiety disorder, unspecified; F32.9 Major depressive disorder, single episode, unspecified; Z85.46 Personal history of malignant neoplasm of prostate; Z86.718 Personal history of other venous thrombosis and embolism; Z98.890 Other specified postprocedural states; Z79.899 Other long term (current) drug therapy
CPT/HCPCS: 49083; J2001; P9047

== ENCOUNTER 2020-10-25 07:18 | Day surgery (SDC) | payer MEDICARE, OTHER ==
[2020-10-25] VITALS (7 sets, daily range): BP systolic 130–136; BP diastolic 71–76
[~2020-10-25] VITALS: Ht 185.4 cm; Wt 85.3 kg
[~2020-10-25 07:18] MED LIST changes: -Cipro
[2020-10-25] MEDS ORDERED: albumin 25% 100mL bottle x 1 IV PRN (07:55)
== END 2020-10-25 10:20 | disposition home or self-care (01) ==
LOC: SSTAY O 07:18
PROVIDERS: ATTEND Radiology Diagnostic Radiology
DX: R18.8 Other ascites (principal); J44.9 Chronic obstructive pulmonary disease, unspecified; K58.9 Irritable bowel syndrome, unspecified; E80.4 Gilbert syndrome; D56.3 Thalassemia minor; F32.9 Major depressive disorder, single episode, unspecified; F41.9 Anxiety disorder, unspecified; Z85.46 Personal history of malignant neoplasm of prostate; Z85.038 Personal history of other malignant neoplasm of large intestine; Z86.718 Personal history of other venous thrombosis and embolism; Z98.890 Other specified postprocedural states; Z79.899 Other long term (current) drug therapy
CPT/HCPCS: 49083; P9047

== ENCOUNTER 2020-10-31 09:02 | Day surgery (SDC) | payer MEDICARE, OTHER ==
[2020-10-31] VITALS (12 sets, daily range): BP systolic 113–131; BP diastolic 54–72
[~2020-10-31] VITALS: Ht 180.3 cm; Wt 81.3 kg
[2020-10-31] MEDS ORDERED: normal saline 1000ml 1,000 ML IV PRN (09:25)
[2020-10-31] MEDS ORDERED: albumin 25% 100mL bottle x 1 IV PRN (09:25)
[2020-10-31] MEDS ORDERED: LIDOcaine 1% (10mg/ml) 2ml vial SQ ONE (09:45)
[2020-10-31] MEDS ORDERED: APIX5TAB3 PO (12:12)
[2020-10-31] MEDS ORDERED: fentaNYL/PF 50MCG/1 ML 2ML syringe ONE ×3 (14:20→15:13)
[2020-10-31] MEDS ORDERED: midazolam 2 mg/2 ml injection ONE ×2 (14:20→15:13)
[2020-10-31] MEDS ORDERED: iohexol 300 MG/1 ML 50ml polymer ONE (14:34)
[2020-10-31] MEDS ORDERED: LIDOcaine 1%/PF 5ML 10 MG/ML VIAL ONE ×2 (14:34→15:33)
[2020-10-31] MEDS ORDERED: ceFAZolin/D5W- 1GM premix 50 ML IV ONE (16:35)
== END 2020-10-31 18:15 | disposition home or self-care (01) ==
LOC: SSTAY O 09:02
PROVIDERS: ATTEND Radiology Vascular & Interventional Radiology
DX: N13.2 Hydronephrosis with renal and ureteral calculous obstruction (principal); R18.8 Other ascites; C18.9 Malignant neoplasm of colon, unspecified; E80.4 Gilbert syndrome; D56.3 Thalassemia minor; F32.9 Major depressive disorder, single episode, unspecified; F41.9 Anxiety disorder, unspecified; Z85.46 Personal history of malignant neoplasm of prostate; Z86.718 Personal history of other venous thrombosis and embolism; Z98.890 Other specified postprocedural states
CPT/HCPCS: 49083; 50432; C1729; C1769; J0690; J2250; J3010; P9047; Q9967; 76942; 99152; 99153

== ENCOUNTER 2020-11-07 07:05 | Day surgery (SDC) | payer MEDICARE, OTHER ==
[~2020-11-07] VITALS: Ht 180.3 cm; Wt 79.7 kg
[~2020-11-07 07:05] MED LIST changes: +APIX5TAB3 PO; -CHOL500049 PO; -DIPH-186 PO
--- NOTE | 2020-11-07 07:15 | NUR ---
Patient arrived to unit at this time.
[2020-11-07 07:30] VITALS: BP 141/89
[2020-11-07] MEDS ORDERED: albumin 25% 100mL bottle x 1 IV PRN (07:45)
[2020-11-07] MEDS ORDERED: LIDOcaine 1% (10mg/ml) 2ml vial ONE (07:53)
[2020-11-07 08:58] VITALS: BP 123/73
[2020-11-07 09:15] VITALS: BP 123/74
[2020-11-07 09:30] VITALS: BP 118/63
--- NOTE | 2020-11-07 09:30 | NUR ---
Patient finished draining. 3500ml out. Cannula removed; dressed with 4'4s and tegaderm. Patient eating breakfast now. Will continue to monitor.
== END 2020-11-07 10:30 | disposition home or self-care (01) ==
LOC: SSTAY O 07:05
PROVIDERS: ATTEND Radiology Diagnostic Radiology
DX: R18.8 Other ascites (principal); C18.9 Malignant neoplasm of colon, unspecified; J44.9 Chronic obstructive pulmonary disease, unspecified; K58.9 Irritable bowel syndrome, unspecified; G47.30 Sleep apnea, unspecified; E80.4 Gilbert syndrome; D56.3 Thalassemia minor; F32.9 Major depressive disorder, single episode, unspecified; F41.9 Anxiety disorder, unspecified; Z86.718 Personal history of other venous thrombosis and embolism; Z85.46 Personal history of malignant neoplasm of prostate; Z98.890 Other specified postprocedural states; Z79.899 Other long term (current) drug therapy; Z79.01 Long term (current) use of anticoagulants
CPT/HCPCS: 49083; J2001

== ENCOUNTER 2020-11-19 07:01 | Day surgery (SDC) | payer MEDICARE, OTHER ==
[~2020-11-19] VITALS: Ht 180.3 cm; Wt 83.4 kg
[2020-11-19] VITALS (8 sets, daily range): BP systolic 122–144; BP diastolic 61–94
[2020-11-19] MEDS ORDERED: albumin 25% 100mL bottle x 1 IV PRN (07:30)
== END 2020-11-19 10:30 | disposition home or self-care (01) ==
LOC: SSTAY O 07:01
PROVIDERS: ATTEND Radiology Diagnostic Radiology
DX: R18.8 Other ascites (principal); C18.9 Malignant neoplasm of colon, unspecified; K58.9 Irritable bowel syndrome, unspecified; G47.30 Sleep apnea, unspecified; E80.4 Gilbert syndrome; D56.3 Thalassemia minor; F41.9 Anxiety disorder, unspecified; F32.9 Major depressive disorder, single episode, unspecified; Z85.46 Personal history of malignant neoplasm of prostate; Z86.718 Personal history of other venous thrombosis and embolism; Z98.890 Other specified postprocedural states; Z79.01 Long term (current) use of anticoagulants; Z79.899 Other long term (current) drug therapy
CPT/HCPCS: 49083; P9047

== ENCOUNTER 2020-11-29 08:07 | Day surgery (SDC) | payer MEDICARE, OTHER ==
[~2020-11-29] VITALS: Ht 180.3 cm; Wt 84.3 kg
[~2020-11-29 08:07] MED LIST changes: -CELE-193 PO
[2020-11-29] MEDS ORDERED: albumin 25% 100mL bottle x 1 IV PRN (08:35)
[2020-11-29 10:11] VITALS: BP 127/73
== END 2020-11-29 10:32 | disposition home or self-care (01) ==
LOC: SSTAY O 08:07
PROVIDERS: ATTEND Radiology Diagnostic Radiology
DX: R18.8 Other ascites (principal); Z53.8 Procedure and treatment not carried out for other reasons
CPT/HCPCS: 76705

== ENCOUNTER 2020-12-05 07:02 | Day surgery (SDC) | payer MEDICARE, OTHER ==
[~2020-12-05] VITALS: Ht 185.4 cm; Wt 188.2 kg
[2020-12-05] MEDS ORDERED: albumin 25% 100mL bottle x 1 IV PRN (07:25)
[2020-12-05] MEDS ORDERED: Lasix PO (08:22)
[2020-12-05 08:43] VITALS: BP 121/64
== END 2020-12-05 09:30 | disposition home or self-care (01) ==
LOC: SSTAY O 07:02
PROVIDERS: ATTEND Radiology Vascular & Interventional Radiology
DX: R18.8 Other ascites (principal); Z53.8 Procedure and treatment not carried out for other reasons; R14.0 Abdominal distension (gaseous); C18.9 Malignant neoplasm of colon, unspecified; J44.9 Chronic obstructive pulmonary disease, unspecified; K58.9 Irritable bowel syndrome, unspecified; G47.30 Sleep apnea, unspecified; E80.4 Gilbert syndrome; D56.3 Thalassemia minor; F41.9 Anxiety disorder, unspecified; F32.9 Major depressive disorder, single episode, unspecified; Z85.46 Personal history of malignant neoplasm of prostate; Z86.718 Personal history of other venous thrombosis and embolism; Z98.890 Other specified postprocedural states; Z79.899 Other long term (current) drug therapy; Z79.01 Long term (current) use of anticoagulants
CPT/HCPCS: 76705

== ENCOUNTER 2021-01-10 06:54 | Day surgery (SDC) | payer MEDICARE, OTHER ==
[~2021-01-10] VITALS: Ht 180.3 cm; Wt 80.4 kg
[~2021-01-10 06:54] MED LIST changes: +Lasix PO
[2021-01-10] MEDS ORDERED: albumin 25% 100mL bottle x 1 IV PRN (07:30)
[2021-01-10 07:34] VITALS: BP 135/80
[2021-01-10 08:16] VITALS: BP 138/86
[2021-01-10 08:44] VITALS: BP 139/77
== END 2021-01-10 09:10 | disposition home or self-care (01) ==
LOC: SSTAY O 06:54
PROVIDERS: ATTEND Radiology Vascular & Interventional Radiology
DX: R18.8 Other ascites (principal); J44.9 Chronic obstructive pulmonary disease, unspecified; K58.9 Irritable bowel syndrome, unspecified; G47.30 Sleep apnea, unspecified; E80.4 Gilbert syndrome; D56.3 Thalassemia minor; F41.9 Anxiety disorder, unspecified; F32.9 Major depressive disorder, single episode, unspecified; Z85.46 Personal history of malignant neoplasm of prostate; Z86.718 Personal history of other venous thrombosis and embolism; Z79.01 Long term (current) use of anticoagulants; Z85.038 Personal history of other malignant neoplasm of large intestine; Z98.890 Other specified postprocedural states; Z79.899 Other long term (current) drug therapy; Z79.891 Long term (current) use of opiate analgesic
CPT/HCPCS: 49083

== ENCOUNTER 2021-01-17 07:12 | Day surgery (SDC) | payer MEDICARE, OTHER ==
[~2021-01-17] VITALS: Ht 180.3 cm; Wt 79.1 kg
[2021-01-17] MEDS ORDERED: albumin 25% 100mL bottle x 1 IV PRN (07:35)
[2021-01-17 07:49] VITALS: BP 132/75
[2021-01-17 08:50] VITALS: BP 136/84
[2021-01-17 09:00] VITALS: BP 141/77
[2021-01-17 09:15] VITALS: BP 142/78
[2021-01-17 09:30] VITALS: BP 134/71
== END 2021-01-17 10:55 | disposition home or self-care (01) ==
LOC: SSTAY O 07:12
PROVIDERS: ATTEND Radiology Diagnostic Radiology
DX: R18.8 Other ascites (principal); C18.9 Malignant neoplasm of colon, unspecified; J44.9 Chronic obstructive pulmonary disease, unspecified; K58.9 Irritable bowel syndrome, unspecified; G47.30 Sleep apnea, unspecified; E80.4 Gilbert syndrome; D56.3 Thalassemia minor; F32.9 Major depressive disorder, single episode, unspecified; F41.9 Anxiety disorder, unspecified; Z85.46 Personal history of malignant neoplasm of prostate; Z86.718 Personal history of other venous thrombosis and embolism; Z79.01 Long term (current) use of anticoagulants; Z79.899 Other long term (current) drug therapy; Z98.890 Other specified postprocedural states
CPT/HCPCS: 49083

== ENCOUNTER 2021-01-24 07:19 | Day surgery (SDC) | payer MEDICARE, OTHER ==
[~2021-01-24] VITALS: Ht 180.3 cm; Wt 83.5 kg
[2021-01-24 07:33] VITALS: BP 145/76
[2021-01-24] MEDS ORDERED: MORP-92 PO (07:40)
[2021-01-24] MEDS ORDERED: albumin 25% 100mL bottle x 1 IV PRN (07:55)
[2021-01-24 08:55] VITALS: BP 131/73
[2021-01-24 09:00] VITALS: BP 116/68
[2021-01-24 09:15] VITALS: BP 131/74
[2021-01-24 09:30] VITALS: BP 124/67
[2021-01-24 09:45] VITALS: BP 149/82
== END 2021-01-24 10:15 | disposition home or self-care (01) ==
LOC: SSTAY O 07:19
PROVIDERS: ATTEND Radiology Diagnostic Radiology
DX: R18.8 Other ascites (principal); J44.9 Chronic obstructive pulmonary disease, unspecified; K58.9 Irritable bowel syndrome, unspecified; G47.30 Sleep apnea, unspecified; E80.4 Gilbert syndrome; D56.3 Thalassemia minor; F32.9 Major depressive disorder, single episode, unspecified; F41.9 Anxiety disorder, unspecified; C18.9 Malignant neoplasm of colon, unspecified; Z85.46 Personal history of malignant neoplasm of prostate; Z86.718 Personal history of other venous thrombosis and embolism; Z79.01 Long term (current) use of anticoagulants; Z98.890 Other specified postprocedural states; Z79.899 Other long term (current) drug therapy
CPT/HCPCS: 49083

== ENCOUNTER 2021-02-07 06:52 | Day surgery (SDC) | payer MEDICARE, OTHER ==
[~2021-02-07] VITALS: Ht 180.3 cm; Wt 84.1 kg
[2021-02-07] VITALS (10 sets, daily range): BP systolic 112–160; BP diastolic 59–100
[~2021-02-07 06:52] MED LIST changes: +MORP-92 PO
[2021-02-07] MEDS ORDERED: albumin 25% 100mL bottle x 1 IV PRN (07:20)
== END 2021-02-07 11:00 | disposition home or self-care (01) ==
LOC: SSTAY O 06:52
PROVIDERS: ATTEND Radiology Vascular & Interventional Radiology
DX: R18.8 Other ascites (principal); C18.9 Malignant neoplasm of colon, unspecified; J44.9 Chronic obstructive pulmonary disease, unspecified; K58.9 Irritable bowel syndrome, unspecified; E80.4 Gilbert syndrome; D56.3 Thalassemia minor; F32.9 Major depressive disorder, single episode, unspecified; F41.9 Anxiety disorder, unspecified; Z85.46 Personal history of malignant neoplasm of prostate; Z86.718 Personal history of other venous thrombosis and embolism; Z79.01 Long term (current) use of anticoagulants; Z98.890 Other specified postprocedural states; Z79.899 Other long term (current) drug therapy
CPT/HCPCS: 49083

== ENCOUNTER 2021-02-17 08:09 | Day surgery (SDC) | payer MEDICARE, OTHER ==
[~2021-02-17] VITALS: Ht 180.3 cm; Wt 84.6 kg
[~2021-02-17 08:09] MED LIST changes: -APIX5TAB3 PO
[2021-02-17] MEDS ORDERED: albumin 25% 100mL bottle x 1 IV PRN (08:35)
[2021-02-17 08:42] VITALS: BP 135/81
[2021-02-17 09:55] VITALS: BP 160/73
[2021-02-17 10:10] VITALS: BP 167/92
[2021-02-17 10:25] VITALS: BP 142/73
[2021-02-17 10:40] VITALS: BP 153/97
[2021-02-17 10:55] VITALS: BP 162/75
== END 2021-02-17 11:00 | disposition home or self-care (01) ==
LOC: SSTAY O 08:09
PROVIDERS: ATTEND Radiology Vascular & Interventional Radiology
DX: R18.8 Other ascites (principal); C18.9 Malignant neoplasm of colon, unspecified; J44.9 Chronic obstructive pulmonary disease, unspecified; G47.30 Sleep apnea, unspecified; E80.4 Gilbert syndrome; D56.3 Thalassemia minor; F32.9 Major depressive disorder, single episode, unspecified; F41.9 Anxiety disorder, unspecified; Z85.46 Personal history of malignant neoplasm of prostate; Z86.718 Personal history of other venous thrombosis and embolism; Z79.01 Long term (current) use of anticoagulants; Z98.890 Other specified postprocedural states; Z79.899 Other long term (current) drug therapy
CPT/HCPCS: 49083

== ENCOUNTER 2021-02-27 06:38 | Day surgery (SDC) | payer MEDICARE, OTHER ==
[~2021-02-27] VITALS: Ht 180.3 cm; Wt 86.1 kg
[2021-02-27] VITALS (8 sets, daily range): BP systolic 112–149; BP diastolic 61–85
[2021-02-27] MEDS ORDERED: albumin 25% 100mL bottle x 1 IV PRN (07:05)
== END 2021-02-27 10:50 | disposition home or self-care (01) ==
LOC: SSTAY O 06:38
PROVIDERS: ATTEND Radiology Diagnostic Radiology
DX: R18.8 Other ascites (principal); C18.9 Malignant neoplasm of colon, unspecified; J44.9 Chronic obstructive pulmonary disease, unspecified; K58.9 Irritable bowel syndrome, unspecified; G47.30 Sleep apnea, unspecified; E80.4 Gilbert syndrome; D56.3 Thalassemia minor; F32.9 Major depressive disorder, single episode, unspecified; F41.9 Anxiety disorder, unspecified; Z85.46 Personal history of malignant neoplasm of prostate; Z86.718 Personal history of other venous thrombosis and embolism; Z79.01 Long term (current) use of anticoagulants; Z98.890 Other specified postprocedural states
CPT/HCPCS: 49083

== ENCOUNTER 2021-03-04 06:50 | Day surgery (SDC) | payer MEDICARE, OTHER ==
[~2021-03-04] VITALS: Ht 180.3 cm; Wt 82.7 kg
[2021-03-04] VITALS (7 sets, daily range): BP systolic 129–167; BP diastolic 70–91
[~2021-03-04 06:50] MED LIST changes: -AMIT-189 PO; -Lasix PO; -MORP-92 PO; -PANT40TA54 PO; -THC GUMMIES PO
[2021-03-04] MEDS ORDERED: albumin 25% 100mL bottle x 1 IV PRN (07:15)
[2021-03-04] MEDS ORDERED: normal saline 1000ml 1,000 ML IV PRN (07:15)
== END 2021-03-04 09:45 | disposition home or self-care (01) ==
LOC: SSTAY O 06:50
PROVIDERS: ATTEND Radiology Diagnostic Radiology
DX: R18.8 Other ascites (principal); C18.9 Malignant neoplasm of colon, unspecified; J44.9 Chronic obstructive pulmonary disease, unspecified; K58.9 Irritable bowel syndrome, unspecified; E80.4 Gilbert syndrome; D56.3 Thalassemia minor; F32.9 Major depressive disorder, single episode, unspecified; F41.9 Anxiety disorder, unspecified; Z85.46 Personal history of malignant neoplasm of prostate; Z86.718 Personal history of other venous thrombosis and embolism; Z79.01 Long term (current) use of anticoagulants; Z98.890 Other specified postprocedural states; Z79.899 Other long term (current) drug therapy
CPT/HCPCS: 49083

== ENCOUNTER 2021-03-11 06:52 | Day surgery (SDC) | payer MEDICARE, OTHER ==
[~2021-03-11] VITALS: Ht 180.3 cm; Wt 79.7 kg
[2021-03-11] VITALS (10 sets, daily range): BP systolic 116–149; BP diastolic 54–83
[2021-03-11] MEDS ORDERED: albumin 25% 100mL bottle x 1 IV PRN (07:15)
== END 2021-03-11 10:55 | disposition home or self-care (01) ==
LOC: SSTAY O 06:52
PROVIDERS: ATTEND Radiology Vascular & Interventional Radiology
DX: R18.8 Other ascites (principal); C18.9 Malignant neoplasm of colon, unspecified; J44.9 Chronic obstructive pulmonary disease, unspecified; G47.30 Sleep apnea, unspecified; F32.9 Major depressive disorder, single episode, unspecified; F41.9 Anxiety disorder, unspecified; Z98.890 Other specified postprocedural states; Z79.899 Other long term (current) drug therapy; Z87.81 Personal history of (healed) traumatic fracture; Z86.718 Personal history of other venous thrombosis and embolism
CPT/HCPCS: 49083

== ENCOUNTER 2021-03-18 07:18 | Day surgery (SDC) | payer MEDICARE, OTHER ==
[2021-03-18] VITALS (9 sets, daily range): BP systolic 106–153; BP diastolic 7–84
[~2021-03-18] VITALS: Ht 180.3 cm; Wt 79.7 kg
[2021-03-18] MEDS ORDERED: albumin 25% 100mL bottle x 1 IV PRN (07:45)
== END 2021-03-18 11:05 | disposition home or self-care (01) ==
LOC: SSTAY O 07:18
PROVIDERS: ATTEND Radiology Vascular & Interventional Radiology
DX: R18.8 Other ascites (principal); R14.0 Abdominal distension (gaseous); J44.9 Chronic obstructive pulmonary disease, unspecified; K58.9 Irritable bowel syndrome, unspecified; G47.30 Sleep apnea, unspecified; E80.4 Gilbert syndrome; D56.3 Thalassemia minor; F32.9 Major depressive disorder, single episode, unspecified; F41.9 Anxiety disorder, unspecified; C18.9 Malignant neoplasm of colon, unspecified; Z86.718 Personal history of other venous thrombosis and embolism; Z85.46 Personal history of malignant neoplasm of prostate; Z98.890 Other specified postprocedural states
CPT/HCPCS: 49083

== ENCOUNTER 2021-03-25 07:48 | Day surgery (SDC) | payer MEDICARE, OTHER ==
[2021-03-25] VITALS (7 sets, daily range): BP systolic 107–133; BP diastolic 65–83
[~2021-03-25] VITALS: Ht 172.7 cm; Wt 76.2 kg
[2021-03-25] MEDS ORDERED: albumin 25% 100mL bottle x 1 IV PRN (08:10)
== END 2021-03-25 11:00 | disposition home or self-care (01) ==
LOC: SSTAY O 07:48
PROVIDERS: ATTEND Radiology Vascular & Interventional Radiology
DX: R18.8 Other ascites (principal); R14.0 Abdominal distension (gaseous); C18.9 Malignant neoplasm of colon, unspecified; J44.9 Chronic obstructive pulmonary disease, unspecified; K58.9 Irritable bowel syndrome, unspecified; G47.30 Sleep apnea, unspecified; E80.4 Gilbert syndrome; D56.3 Thalassemia minor; F32.9 Major depressive disorder, single episode, unspecified; F41.9 Anxiety disorder, unspecified; Z85.46 Personal history of malignant neoplasm of prostate; Z86.718 Personal history of other venous thrombosis and embolism; Z98.890 Other specified postprocedural states
CPT/HCPCS: 49083

== ENCOUNTER 2021-04-01 07:08 | Day surgery (SDC) | payer MEDICARE, OTHER ==
[2021-04-01] VITALS (7 sets, daily range): BP systolic 128–141; BP diastolic 67–87
[~2021-04-01] VITALS: Ht 177.8 cm; Wt 77.8 kg
[2021-04-01] MEDS ORDERED: albumin 25% 100mL bottle x 1 IV PRN (07:40)
== END 2021-04-01 10:45 | disposition home or self-care (01) ==
LOC: SSTAY O 07:08
PROVIDERS: ATTEND Radiology Vascular & Interventional Radiology
DX: R18.8 Other ascites (principal); R14.0 Abdominal distension (gaseous); C18.9 Malignant neoplasm of colon, unspecified; J44.9 Chronic obstructive pulmonary disease, unspecified; K58.9 Irritable bowel syndrome, unspecified; G47.30 Sleep apnea, unspecified; E80.4 Gilbert syndrome; D56.3 Thalassemia minor; F32.9 Major depressive disorder, single episode, unspecified; F41.9 Anxiety disorder, unspecified; Z85.46 Personal history of malignant neoplasm of prostate; Z86.718 Personal history of other venous thrombosis and embolism; Z79.01 Long term (current) use of anticoagulants; Z98.890 Other specified postprocedural states; Z79.899 Other long term (current) drug therapy
CPT/HCPCS: 49083

== ENCOUNTER 2021-04-10 07:14 | Day surgery (SDC) | payer MEDICARE, OTHER ==
[~2021-04-10] VITALS: Ht 154.9 cm; Wt 81.5 kg
[2021-04-10] VITALS (10 sets, daily range): BP systolic 85–156; BP diastolic 46–114
[2021-04-10] MEDS ORDERED: albumin 25% 100mL bottle x 1 IV PRN (07:20)
== END 2021-04-10 10:40 | disposition home or self-care (01) ==
LOC: SSTAY O 07:14
PROVIDERS: ATTEND Radiology Vascular & Interventional Radiology
DX: R18.8 Other ascites (principal); J44.9 Chronic obstructive pulmonary disease, unspecified; G47.30 Sleep apnea, unspecified; E80.4 Gilbert syndrome; D56.3 Thalassemia minor; F32.9 Major depressive disorder, single episode, unspecified; F41.9 Anxiety disorder, unspecified; Z86.718 Personal history of other venous thrombosis and embolism; Z79.01 Long term (current) use of anticoagulants; Z98.890 Other specified postprocedural states; Z79.899 Other long term (current) drug therapy
CPT/HCPCS: 49083

== ENCOUNTER 2021-04-17 07:43 | Day surgery (SDC) | payer MEDICARE, OTHER ==
[2021-04-17] VITALS (8 sets, daily range): BP systolic 121–136; BP diastolic 71–80
[~2021-04-17] VITALS: Ht 180.3 cm; Wt 81.2 kg
[2021-04-17] MEDS ORDERED: albumin 25% 100mL bottle x 1 IV PRN (08:10)
== END 2021-04-17 11:30 | disposition home or self-care (01) ==
LOC: SSTAY O 07:43
PROVIDERS: ATTEND Radiology Diagnostic Radiology
DX: R18.8 Other ascites (principal); R14.0 Abdominal distension (gaseous); C18.9 Malignant neoplasm of colon, unspecified; J44.9 Chronic obstructive pulmonary disease, unspecified; G47.30 Sleep apnea, unspecified; K58.9 Irritable bowel syndrome, unspecified; E80.4 Gilbert syndrome; D56.3 Thalassemia minor; F32.9 Major depressive disorder, single episode, unspecified; N13.30 Unspecified hydronephrosis; F41.9 Anxiety disorder, unspecified; Z86.718 Personal history of other venous thrombosis and embolism; Z85.038 Personal history of other malignant neoplasm of large intestine; Z85.46 Personal history of malignant neoplasm of prostate; Z79.01 Long term (current) use of anticoagulants; Z98.890 Other specified postprocedural states; Z79.899 Other long term (current) drug therapy
CPT/HCPCS: 49083

== ENCOUNTER 2021-04-28 06:31 | Day surgery (SDC) | payer MEDICARE, OTHER ==
[2021-04-28] VITALS (14 sets, daily range): BP systolic 129–152; BP diastolic 47–98
[~2021-04-28] VITALS: Ht 180.3 cm; Wt 79.6 kg
[2021-04-28] MEDS ORDERED: albumin 25% 100mL bottle x 1 IV PRN (06:50)
[2021-04-28] MEDS ORDERED: normal saline 1000ml 1,000 ML IV PRN (06:50)
== END 2021-04-28 10:55 | disposition home or self-care (01) ==
LOC: SSTAY O 06:31
PROVIDERS: ATTEND Radiology Diagnostic Radiology
DX: R18.8 Other ascites (principal); R14.0 Abdominal distension (gaseous); C18.9 Malignant neoplasm of colon, unspecified; J44.9 Chronic obstructive pulmonary disease, unspecified; K58.9 Irritable bowel syndrome, unspecified; G47.30 Sleep apnea, unspecified; E80.4 Gilbert syndrome; F32.9 Major depressive disorder, single episode, unspecified; F41.9 Anxiety disorder, unspecified; C20 Malignant neoplasm of rectum; D56.3 Thalassemia minor; Z85.46 Personal history of malignant neoplasm of prostate; Z86.718 Personal history of other venous thrombosis and embolism; Z88.5 Allergy status to narcotic agent; Z79.01 Long term (current) use of anticoagulants; Z79.899 Other long term (current) drug therapy
CPT/HCPCS: 49083

== ENCOUNTER 2021-05-08 06:11 | Day surgery (SDC) | payer MEDICARE, OTHER ==
[~2021-05-08] VITALS: Ht 180.3 cm; Wt 74.3 kg
[2021-05-08] MEDS ORDERED: albumin 25% 100mL bottle x 1 IV PRN (06:50)
[2021-05-08 06:54] VITALS: BP 132/77
--- NOTE | 2021-05-08 07:54 | NUR ---
Bilateral Nephrostomy tubes in place Addendum: 05/08/21 at 0756 by Yolanda Soria RN Amended: Links added.
[2021-05-08 08:40] VITALS: BP 140/77
[2021-05-08 08:55] VITALS: BP 131/88
[2021-05-08 09:10] VITALS: BP 132/70
[2021-05-08 09:25] VITALS: BP 132/88
[2021-05-08 09:45] VITALS: BP 119/78
== END 2021-05-08 10:35 | disposition home or self-care (01) ==
LOC: SSTAY O 06:11
PROVIDERS: ATTEND Radiology Vascular & Interventional Radiology
DX: R18.8 Other ascites (principal); R14.0 Abdominal distension (gaseous); C18.9 Malignant neoplasm of colon, unspecified; J44.9 Chronic obstructive pulmonary disease, unspecified; K58.9 Irritable bowel syndrome, unspecified; G47.30 Sleep apnea, unspecified; E80.4 Gilbert syndrome; D56.3 Thalassemia minor; F32.9 Major depressive disorder, single episode, unspecified; F41.9 Anxiety disorder, unspecified; Z85.46 Personal history of malignant neoplasm of prostate; Z86.718 Personal history of other venous thrombosis and embolism; Z98.890 Other specified postprocedural states; Z79.01 Long term (current) use of anticoagulants; Z88.5 Allergy status to narcotic agent
CPT/HCPCS: 49083

== ENCOUNTER 2021-05-15 07:10 | Day surgery (SDC) | payer MEDICARE, OTHER ==
[2021-05-15] VITALS (12 sets, daily range): BP systolic 120–135; BP diastolic 57–95
[~2021-05-15] VITALS: Ht 180.3 cm; Wt 72.9 kg
[2021-05-15] MEDS ORDERED: normal saline 1000ml 1,000 ML IV PRN (07:45)
[2021-05-15] MEDS ORDERED: albumin 25% 100mL bottle x 1 IV PRN (07:45)
== END 2021-05-15 11:10 | disposition home or self-care (01) ==
LOC: SSTAY O 07:10
PROVIDERS: ATTEND Radiology Diagnostic Radiology
DX: R18.8 Other ascites (principal); J44.9 Chronic obstructive pulmonary disease, unspecified; K58.9 Irritable bowel syndrome, unspecified; G47.30 Sleep apnea, unspecified; E80.4 Gilbert syndrome; D56.3 Thalassemia minor; F32.9 Major depressive disorder, single episode, unspecified; F41.9 Anxiety disorder, unspecified; Z85.46 Personal history of malignant neoplasm of prostate; Z86.718 Personal history of other venous thrombosis and embolism; Z79.01 Long term (current) use of anticoagulants; Z98.890 Other specified postprocedural states; Z88.8 Allergy status to other drugs, medicaments and biological substances; Z79.899 Other long term (current) drug therapy
CPT/HCPCS: 49083

== ENCOUNTER 2021-05-23 06:11 | Day surgery (SDC) | payer MEDICARE, OTHER ==
[~2021-05-23] VITALS: Ht 180.3 cm; Wt 72.6 kg
[2021-05-23] VITALS (7 sets, daily range): BP systolic 125–142; BP diastolic 80–91
[2021-05-23] MEDS ORDERED: normal saline 1000ml 1,000 ML IV PRN (06:40)
[2021-05-23] MEDS ORDERED: albumin 25% 100mL bottle x 1 IV PRN (06:40)
[2021-05-23] MEDS ORDERED: AMIT100T61 PO (06:46)
== END 2021-05-23 10:00 | disposition home or self-care (01) ==
LOC: SSTAY O 06:11
PROVIDERS: ATTEND Radiology Vascular & Interventional Radiology
DX: R18.8 Other ascites (principal); R14.0 Abdominal distension (gaseous); C18.9 Malignant neoplasm of colon, unspecified; J44.9 Chronic obstructive pulmonary disease, unspecified; K58.9 Irritable bowel syndrome, unspecified; G47.30 Sleep apnea, unspecified; E80.4 Gilbert syndrome; D56.3 Thalassemia minor; F32.9 Major depressive disorder, single episode, unspecified; F41.9 Anxiety disorder, unspecified; Z85.46 Personal history of malignant neoplasm of prostate; Z86.718 Personal history of other venous thrombosis and embolism; Z79.01 Long term (current) use of anticoagulants; Z98.890 Other specified postprocedural states; Z88.8 Allergy status to other drugs, medicaments and biological substances; Z79.899 Other long term (current) drug therapy
CPT/HCPCS: 49083

== ENCOUNTER 2021-05-29 07:09 | Day surgery (SDC) | payer MEDICARE, OTHER ==
[2021-05-29] VITALS (9 sets, daily range): BP systolic 126–147; BP diastolic 69–89
[~2021-05-29] VITALS: Ht 180.3 cm; Wt 76.3 kg
[~2021-05-29 07:09] MED LIST changes: +AMIT100T61 PO
[2021-05-29] MEDS ORDERED: albumin 25% 100mL bottle x 1 IV PRN (07:50)
== END 2021-05-29 11:00 | disposition home or self-care (01) ==
LOC: SSTAY O 07:09
PROVIDERS: ATTEND Preventive Medicine Aerospace Medicine
DX: R18.8 Other ascites (principal); R14.0 Abdominal distension (gaseous); C18.9 Malignant neoplasm of colon, unspecified; J44.9 Chronic obstructive pulmonary disease, unspecified; K58.9 Irritable bowel syndrome, unspecified; G47.30 Sleep apnea, unspecified; E80.4 Gilbert syndrome; D56.3 Thalassemia minor; F32.9 Major depressive disorder, single episode, unspecified; F41.9 Anxiety disorder, unspecified; Z85.46 Personal history of malignant neoplasm of prostate; Z86.718 Personal history of other venous thrombosis and embolism; Z79.01 Long term (current) use of anticoagulants
CPT/HCPCS: 49083

== ENCOUNTER 2021-06-05 07:01 | Day surgery (SDC) | payer MEDICARE, OTHER ==
[2021-06-05] VITALS (9 sets, daily range): BP systolic 121–149; BP diastolic 73–89
[~2021-06-05] VITALS: Ht 180.3 cm; Wt 77.1 kg
[2021-06-05] MEDS ORDERED: albumin 25% 100mL bottle x 1 IV PRN (07:25)
== END 2021-06-05 11:05 | disposition home or self-care (01) ==
LOC: SSTAY O 07:01
PROVIDERS: ATTEND Radiology Vascular & Interventional Radiology
DX: R18.8 Other ascites (principal); C18.9 Malignant neoplasm of colon, unspecified; J44.9 Chronic obstructive pulmonary disease, unspecified; K58.9 Irritable bowel syndrome, unspecified; D56.3 Thalassemia minor; E80.4 Gilbert syndrome; F41.9 Anxiety disorder, unspecified; F32.9 Major depressive disorder, single episode, unspecified; Z85.46 Personal history of malignant neoplasm of prostate; Z86.718 Personal history of other venous thrombosis and embolism; Z79.899 Other long term (current) drug therapy; Z98.890 Other specified postprocedural states; Z79.01 Long term (current) use of anticoagulants
CPT/HCPCS: 49083

== ENCOUNTER 2021-06-13 07:16 | Day surgery (SDC) | payer MEDICARE, OTHER ==
[~2021-06-13] VITALS: Ht 180.3 cm; Wt 78.1 kg
[2021-06-13] MEDS ORDERED: albumin 25% 100mL bottle x 1 IV PRN (07:45)
[2021-06-13 08:47] VITALS: BP 155/81
[2021-06-13 09:10] VITALS: BP 148/80
[2021-06-13 09:25] VITALS: BP 140/73
[2021-06-13 09:40] VITALS: BP 130/63
[2021-06-13 09:55] VITALS: BP 160/63
[2021-06-13 10:10] VITALS: BP 148/63
== END 2021-06-13 10:15 | disposition home or self-care (01) ==
LOC: SSTAY O 07:16
PROVIDERS: ATTEND Radiology Vascular & Interventional Radiology
DX: R18.8 Other ascites (principal); R14.0 Abdominal distension (gaseous); C18.9 Malignant neoplasm of colon, unspecified; J44.9 Chronic obstructive pulmonary disease, unspecified; G47.30 Sleep apnea, unspecified; K58.9 Irritable bowel syndrome, unspecified; E80.4 Gilbert syndrome; D56.3 Thalassemia minor; F32.9 Major depressive disorder, single episode, unspecified; F41.9 Anxiety disorder, unspecified; Z85.46 Personal history of malignant neoplasm of prostate; Z86.718 Personal history of other venous thrombosis and embolism; Z98.890 Other specified postprocedural states; Z79.899 Other long term (current) drug therapy
CPT/HCPCS: 49083

== ENCOUNTER 2021-06-19 07:03 | Day surgery (SDC) | payer MEDICARE, OTHER ==
[~2021-06-19] VITALS: Ht 180.3 cm; Wt 79.2 kg
[2021-06-19 07:28] VITALS: BP 132/69
[2021-06-19] MEDS ORDERED: albumin 25% 100mL bottle x 1 IV PRN (07:30)
[2021-06-19 08:52] VITALS: BP 136/95
[2021-06-19 09:07] VITALS: BP 134/86
[2021-06-19 09:22] VITALS: BP 133/77
[2021-06-19 09:45] VITALS: BP 125/53
[2021-06-19 10:00] VITALS: BP 113/60
--- NOTE | 2021-06-19 11:18 | NUR ---
pt has bilateral urostomy tube. Sterile dressing change done by YUMI Guerrero on visit today. No skin breakdown noted
== END 2021-06-19 10:30 | disposition home or self-care (01) ==
LOC: SSTAY O 07:03
PROVIDERS: ATTEND Radiology Diagnostic Radiology
DX: R18.8 Other ascites (principal); R14.0 Abdominal distension (gaseous); C18.9 Malignant neoplasm of colon, unspecified; J44.9 Chronic obstructive pulmonary disease, unspecified; K58.9 Irritable bowel syndrome, unspecified; E80.4 Gilbert syndrome; D56.3 Thalassemia minor; F41.9 Anxiety disorder, unspecified; F32.9 Major depressive disorder, single episode, unspecified; Z85.46 Personal history of malignant neoplasm of prostate; Z86.718 Personal history of other venous thrombosis and embolism; Z79.01 Long term (current) use of anticoagulants; Z98.890 Other specified postprocedural states; Z79.899 Other long term (current) drug therapy
CPT/HCPCS: 49083

== ENCOUNTER 2021-06-26 07:03 | Day surgery (SDC) | payer MEDICARE, OTHER ==
[~2021-06-26] VITALS: Ht 180.3 cm; Wt 78.5 kg
[~2021-06-26 07:03] MED LIST changes: -AMIT100T61 PO
[2021-06-26 07:38] VITALS: BP 147/95
--- NOTE | 2021-06-26 08:13 | NUR ---
unable to complete sepsis assessment fully due to lack of current labratory work Addendum: 06/26/21 at 0815 by Kizzy Solorio - Student [facility] Amended: Links added.
--- NOTE | 2021-06-26 08:17 | NUR ---
Pt has bilateral nephrostomy drainage bags Addendum: 06/26/21 at 0819 by Kizzy Solorio - Student [facility] Amended: Links added.
[2021-06-26 08:30] VITALS: BP 142/89
[2021-06-26 08:45] VITALS: BP 144/72
[2021-06-26 09:00] VITALS: BP 146/77
== END 2021-06-26 09:40 | disposition home or self-care (01) ==
LOC: SSTAY O 07:03
PROVIDERS: ATTEND Preventive Medicine Aerospace Medicine
DX: R18.8 Other ascites (principal); J44.9 Chronic obstructive pulmonary disease, unspecified; K58.9 Irritable bowel syndrome, unspecified; E80.4 Gilbert syndrome; D56.3 Thalassemia minor; F41.9 Anxiety disorder, unspecified; F32.9 Major depressive disorder, single episode, unspecified; C18.9 Malignant neoplasm of colon, unspecified; Z85.038 Personal history of other malignant neoplasm of large intestine; Z86.718 Personal history of other venous thrombosis and embolism; Z85.46 Personal history of malignant neoplasm of prostate; Z79.01 Long term (current) use of anticoagulants; Z98.890 Other specified postprocedural states; Z88.8 Allergy status to other drugs, medicaments and biological substances; Z79.899 Other long term (current) drug therapy
CPT/HCPCS: 49083

== ENCOUNTER 2021-07-02 06:57 | Day surgery (SDC) | payer MEDICARE, OTHER ==
[2021-07-02] VITALS (7 sets, daily range): BP systolic 148–158; BP diastolic 81–109
[~2021-07-02] VITALS: Ht 180.3 cm; Wt 78.2 kg
[2021-07-02] MEDS ORDERED: ceFAZolin inj. 2,000 MG in normal saline soln 50 ML IV ONE (07:25)
[2021-07-02] MEDS ORDERED: normal saline 1000ml 1,000 ML IV PRN (07:25)
[2021-07-02] MEDS ORDERED: fentaNYL/PF 50MCG/1 ML 2ML syringe ONE (09:34)
== END 2021-07-02 13:40 | disposition home or self-care (01) ==
LOC: SSTAY O 06:57
PROVIDERS: ATTEND Preventive Medicine Aerospace Medicine
DX: T83.032A Leakage of nephrostomy catheter, initial encounter (principal); R18.8 Other ascites; N13.2 Hydronephrosis with renal and ureteral calculous obstruction; C61 Malignant neoplasm of prostate; Z88.8 Allergy status to other drugs, medicaments and biological substances; Z79.899 Other long term (current) drug therapy; Z85.038 Personal history of other malignant neoplasm of large intestine; Y83.8 Other surgical procedures as the cause of abnormal reaction of the patient, or of later complication, without mention of misadventure at the time of the procedure; Y92.89 Other specified places as the place of occurrence of the external cause
CPT/HCPCS: 49083; 50435; C1729; C1769; J3010; 50387

== ENCOUNTER 2021-07-10 07:05 | Day surgery (SDC) | payer MEDICARE, OTHER ==
[~2021-07-10] VITALS: Ht 180.3 cm; Wt 77.3 kg
[2021-07-10] MEDS ORDERED: albumin 25% 100mL bottle x 1 IV PRN (07:30)
[2021-07-10 07:36] VITALS: BP 138/75
[2021-07-10 09:06] VITALS: BP 131/98
[2021-07-10 09:37] VITALS: BP 127/81
[2021-07-10 09:51] VITALS: BP 122/88
[2021-07-10 10:06] VITALS: BP 126/77
[2021-07-10 10:21] VITALS: BP 138/92
== END 2021-07-10 10:50 | disposition home or self-care (01) ==
LOC: SSTAY O 07:05
PROVIDERS: ATTEND Radiology Vascular & Interventional Radiology
DX: R18.8 Other ascites (principal); C18.9 Malignant neoplasm of colon, unspecified; J44.9 Chronic obstructive pulmonary disease, unspecified; K58.9 Irritable bowel syndrome, unspecified; E80.4 Gilbert syndrome; F32.9 Major depressive disorder, single episode, unspecified; F41.9 Anxiety disorder, unspecified; D56.3 Thalassemia minor; Z85.46 Personal history of malignant neoplasm of prostate; Z86.718 Personal history of other venous thrombosis and embolism; Z79.01 Long term (current) use of anticoagulants; Z98.890 Other specified postprocedural states
CPT/HCPCS: 49083

== ENCOUNTER 2021-07-17 07:16 | Day surgery (SDC) | payer MEDICARE, OTHER ==
[~2021-07-17] VITALS: Ht 180.3 cm; Wt 77.1 kg
[2021-07-17] VITALS (8 sets, daily range): BP systolic 124–150; BP diastolic 80–99
[2021-07-17] MEDS ORDERED: MORP-92 PO (07:43)
[2021-07-17] MEDS ORDERED: albumin 25% 100mL bottle x 1 IV PRN (07:45)
[2021-07-17] MEDS ORDERED: morphine 10mg/ml inj. IM ONE (09:25)
--- NOTE | 2021-07-17 11:30 | NUR ---
Urostomy bags changed and dressings changed out today. Addendum: 07/17/21 at 1314 by Neisha Vazquez RN Amended: Links added.
== END 2021-07-17 11:50 | disposition home or self-care (01) ==
LOC: SSTAY O 07:16
PROVIDERS: ATTEND Radiology Vascular & Interventional Radiology
DX: R18.8 Other ascites (principal); R14.0 Abdominal distension (gaseous); C18.9 Malignant neoplasm of colon, unspecified; J44.9 Chronic obstructive pulmonary disease, unspecified; K58.9 Irritable bowel syndrome, unspecified; G47.30 Sleep apnea, unspecified; E80.4 Gilbert syndrome; D56.3 Thalassemia minor; F41.9 Anxiety disorder, unspecified; F32.9 Major depressive disorder, single episode, unspecified; Z85.46 Personal history of malignant neoplasm of prostate; Z86.718 Personal history of other venous thrombosis and embolism; Z79.01 Long term (current) use of anticoagulants; Z98.890 Other specified postprocedural states
CPT/HCPCS: 49083; J2270

== ENCOUNTER 2021-07-24 07:14 | Day surgery (SDC) | payer MEDICARE, OTHER ==
[2021-07-24] VITALS (7 sets, daily range): BP systolic 117–148; BP diastolic 66–83
[~2021-07-24] VITALS: Ht 180.3 cm; Wt 72.0 kg
[~2021-07-24 07:14] MED LIST changes: +MORP-92 PO
[2021-07-24] MEDS ORDERED: albumin 25% 100mL bottle x 1 IV PRN (07:55)
== END 2021-07-24 10:25 | disposition home or self-care (01) ==
LOC: SSTAY O 07:14
PROVIDERS: ATTEND Preventive Medicine Aerospace Medicine
DX: R18.8 Other ascites (principal); R14.0 Abdominal distension (gaseous); G47.30 Sleep apnea, unspecified; E80.4 Gilbert syndrome; D56.3 Thalassemia minor; K58.9 Irritable bowel syndrome, unspecified; C18.9 Malignant neoplasm of colon, unspecified; F32.9 Major depressive disorder, single episode, unspecified; F41.9 Anxiety disorder, unspecified; Z85.46 Personal history of malignant neoplasm of prostate; Z86.718 Personal history of other venous thrombosis and embolism; Z98.890 Other specified postprocedural states
CPT/HCPCS: 49083

== ENCOUNTER 2021-07-31 08:30 | Day surgery (SDC) | payer MEDICARE, OTHER ==
[2021-07-31] VITALS (8 sets, daily range): BP systolic 127–140; BP diastolic 61–89
[~2021-07-31] VITALS: Ht 180.3 cm; Wt 68.7 kg
[2021-07-31] MEDS ORDERED: iohexol 300 MG/1 ML 50ml polymer ONE (09:47)
[2021-07-31] MEDS ORDERED: LIDOcaine 1%/PF 5ML 10 MG/ML VIAL ONE (09:47)
[2021-07-31] MEDS ORDERED: fentaNYL/PF 50MCG/1 ML 2ML syringe ONE (11:08)
== END 2021-07-31 12:40 | disposition home or self-care (01) ==
LOC: SSTAY O 08:30
PROVIDERS: ATTEND Preventive Medicine Aerospace Medicine
DX: T83.032A Leakage of nephrostomy catheter, initial encounter (principal); R18.8 Other ascites; R14.0 Abdominal distension (gaseous); N13.30 Unspecified hydronephrosis; C18.9 Malignant neoplasm of colon, unspecified; C61 Malignant neoplasm of prostate; J44.9 Chronic obstructive pulmonary disease, unspecified; K58.9 Irritable bowel syndrome, unspecified; G47.30 Sleep apnea, unspecified; E80.4 Gilbert syndrome; D56.3 Thalassemia minor; F41.9 Anxiety disorder, unspecified; F32.9 Major depressive disorder, single episode, unspecified; Z86.718 Personal history of other venous thrombosis and embolism; Z79.01 Long term (current) use of anticoagulants; Z98.890 Other specified postprocedural states; Z88.8 Allergy status to other drugs, medicaments and biological substances; Y83.8 Other surgical procedures as the cause of abnormal reaction of the patient, or of later complication, without mention of misadventure at the time of the procedure; Y92.89 Other specified places as the place of occurrence of the external cause
CPT/HCPCS: 49083; 50435; 99152; C1729; C1769; J3010; Q9967; 50387